=== PATIENT | male | born 1960 | race Caucasian/White ===

== ENCOUNTER 2021-07-25 22:58 | Observation (INO) ==
[2021-07-25] MEDS ORDERED: ALUM/MAG/SIMETH/LIDO VISC 1:1 30 ML BOTTLE PO STA (23:26)
[2021-07-25] MEDS ORDERED: NITROGLYCERIN 2% OINT 1 INCH/GM PACK TOP STA (23:26)
[2021-07-25] MEDS ORDERED: ONDANSETRON 4 MG/2 ML VIAL IV STA (23:26)
[2021-07-25] MEDS ORDERED: MORPHINE 2 MG/1 ML SYRINGE IV STA (23:26)
[2021-07-25] MEDS ORDERED: ASPIRIN 325 MG TABLET PO STA (23:26)
[2021-07-25 23:33] LABS: Basophils # 0.1 10*3/uL (0.0-0.2); Basophils % 0.8 % (0.0-0.8); Eosinophils # 0.5 10*3/uL (0.0-0.87); Eosinophils % 6.1 % (0.00-10.9); Hematocrit 45.8 VOL% (42.0-52.0); Hemoglobin 15.6 GM/DL (14.0-18.0); Immature Granulocytes % 0.3 %; Immature Granulocytes Absolute 0.02 #; Lymphocytes # 2.2 10*3/uL (1.4-4.0); Lymphocytes % 28.1 % (21.2-54.2); Mean Corpuscular HGB Conc 34.1 GM/DL (32-36); Mean Corpuscular Volume 88.4 FL (87-102); Mean Platelet Volume 9.3 FL (9.6-12.0); Monocytes % 11.5 % (1.7-12.7); Neutrophils % 53.2 % (38.7-73.9); Platelet Count 242 T/CUMM (130-400); Red Blood Count 5.18 MC/CUMM (3.8-5.5); Red Cell Distribution Width 14.2 % (9.3-17.3); White Blood Count 7.7 T/CUMM (4-12)
[2021-07-25 23:47] LABS: Albumin 3.5 G/DL (3.4-5.0); Bilirubin,Total 0.4 MG/DL (0.20-1.00); Calcium 8.7 MG/DL (8.5-10.1); Osmolality,Calculated 275.8 MOS/KG (273-304); Potassium 3.4 MMOL/L (3.5-5.1); Total Protein 7.2 G/DL (6.4-8.2)
[2021-07-26] MEDS ORDERED: ENOXAPARIN 100 MG/ML SYRINGE SUBCUT STA (00:05)
[2021-07-26] MEDS ORDERED: ACETAMINOPHEN 325 MG TABLET PO PRN (00:26)
[2021-07-26] MEDS ORDERED: GLUCAGON 1 MG VIAL IM PRN (00:26)
[2021-07-26] MEDS ORDERED: NITROGLYCERIN SL 0.4 MG TABLET SL PRN (00:26)
[2021-07-26] MEDS ORDERED: hydrALAZINE 20 MG/1 ML VIAL IV PRN (00:26)
[2021-07-26] MEDS ORDERED: ONDANSETRON 4 MG/2 ML VIAL IV PRN (00:26)
[2021-07-26] MEDS ORDERED: MORPHINE 2 MG/1 ML SYRINGE IV PRN (00:26)
[2021-07-26] MEDS ORDERED: SIMETHICONE CHEW 125 MG TABLET PO PRN (00:26)
[2021-07-26] MEDS ORDERED: DEXTROSE 50% 25 GM/50 ML SYRINGE IV PRN (00:38)
[2021-07-26] MEDS ORDERED: POTASSIUM CHLORIDE RIDER 10 MEQ/100 ML PREMIX IV PRN (00:53)
[2021-07-26] MEDS ORDERED: POTASSIUM CHLORIDE 20 MEQ TABLET PO PRN (00:53)
[2021-07-26] MEDS ORDERED: MAGNESIUM SULF RIDER 2 GM/50 ML PREMIX IV PRN (00:53)
[2021-07-26] MEDS ORDERED: MAGNESIUM SULF RIDER 4 GM/100 ML PREMIX IV PRN (00:53)
[2021-07-26 04:54] LABS: Basophils % 0.5 % (0.0-0.8); Eosinophils # 0.3 10*3/uL (0.0-0.87); Eosinophils % 3.9 % (0.00-10.9); Hematocrit 45.4 VOL% (42.0-52.0); Hemoglobin 15.4 GM/DL (14.0-18.0); Immature Granulocytes % 0.3 %; Immature Granulocytes Absolute 0.02 #; Lymphocytes # 1.8 10*3/uL (1.4-4.0); Lymphocytes % 24.3 % (21.2-54.2); Mean Corpuscular HGB Conc 33.9 GM/DL (32-36); Mean Corpuscular Volume 88.8 FL (87-102); Mean Platelet Volume 9.5 FL (9.6-12.0); Monocytes % 7.7 % (1.7-12.7); Neutrophils % 63.3 % (38.7-73.9); Platelet Count 231 T/CUMM (130-400); Red Blood Count 5.11 MC/CUMM (3.8-5.5); Red Cell Distribution Width 14.3 % (9.3-17.3); White Blood Count 7.5 T/CUMM (4-12)
[2021-07-26 05:26] LABS: Calcium 9.1 MG/DL (8.5-10.1); Osmolality,Calculated 270.1 MOS/KG (273-304); Potassium 4.1 MMOL/L (3.5-5.1); Risk Ratio 3.22; Thyroid Stimulating Hormone 2.61 uIU/ml (0.358-3.74); VLDL Cholesterol 38.6 MG/DL
[2021-07-26] MEDS ORDERED: INSULIN REGULAR 100 UNIT/ML SUBCUT SCH (07:30)
[2021-07-26 08:31] LABS: Bilirubin,Urine Negative (Negative); Blood, Urine Negative (Negative); Glucose,Urine (UA) Negative (Negative); Ketones,Urine Negative (Negative); Mucus,Urine Occasional /LPF (Occasional); Nitrite,Urine Negative (Negative); Protein,Urine Negative; RBC,Urine 1 /HPF (0-4); Urine Appearance CLEAR (Clear); Urine Color Yellow (Yellow); Urine Urobilinogen < 2.0 EU/DL (<2.0)
[2021-07-26] MEDS ORDERED: PANTOPRAZOLE 40 MG TABLET PO SCH (09:00)
[2021-07-26] MEDS ORDERED: ASPIRIN EC 81 MG TABLET PO SCH (09:30)
[2021-07-26] MEDS ORDERED: NEBIVOLOL 5 MG TABLET PO SCH (10:00)
[2021-07-26] MEDS ORDERED: TICAGRELOR 90 MG TABLET PO SCH (10:00)
[2021-07-26] MEDS ORDERED: LOSARTAN 25 MG TABLET PO SCH (10:00)
[2021-07-26 10:27] VITALS: BP 128/78
[2021-07-26] MEDS ORDERED: ROSUVASTATIN 20 MG TABLET PO SCH (21:00)
[2021-07-27] MEDS ORDERED: ASPIRIN EC 325 MG TABLET PO SCH (09:00)
[2021-07-27] MEDS ORDERED: COENZYME Q10 100 MG CAPSULE PO SCH (09:00)
== END 2021-07-26 10:04 | disposition home or self-care (01) ==
LOC: N.EDINP 22:58 → N.ED 22:58 → N.EDINP 07-26 10:24
PROVIDERS: ADMIT Internal Medicine; ATTEND Internal Medicine